=== PATIENT | male | born 1965 | race African-American/Black ===

== ENCOUNTER 2021-12-17 12:55 | Emergency (ER) | payer MEDICAID ==
[~2021-12-17] VITALS: Ht 160 cm; Wt 63.8 kg
[2021-12-17 13:49] LABS: Basophils # (auto) 0 10 ^3/uL (0-0.2); Basophils % (auto) 1.1 % (0.0-2.0); Eosinophils # (auto) 0 10 ^3/uL (0-0.8); Eosinophils % (auto) 0.8 % (0.0-7.0); Hematocrit 45.5 % (41.0-53.0); Hemoglobin 15.1 g/dL (13.5-17.5); Lymphocytes # (auto) 1.7 10 ^3/uL (0.4-5.4); Lymphocytes % (auto) 50.1 % (10.0-50.0); Mean Corpuscular Hemoglobin 27.8 pg (28.0-32.0); Mean Corpuscular Hgb Conc. 33.3 g/dL (32.0-36.0); Mean Corpuscular Volume 83.3 fL (80.0-100.0); Monocytes # (auto) 0.4 10 ^3/uL (0-1.3); Monocytes % (auto) 12.1 % (0.0-12.0); Neutrophils # (auto) 1.2 10 ^3/uL (1.6-8.6); Neutrophils % (auto) 35.9 % (37.0-80.0); Nucleated Red Blood Cells % 0.1 %; Red Blood Cells 5.45 10^6/uL (4.5-5.90); Red Cell Distribution Width 14.8 % (11.8-14.3); White Blood Cell 3.4 10^3/uL (4.4-10.8)
[2021-12-17 14:14] LABS: Albumin 3.6 g/dL (3.4-5.0); Potassium 4.2 mmol/L (3.5-5.1)
[2021-12-17 14:22] LABS: BUN/Creatinine Ratio 8.3; Bilirubin, Total 0.7 mg/dL (0.2-1.0); Total Protein 7.1 g/dL (6.4-8.2)
[2021-12-17] MEDS ORDERED: PANT40TA2 PO ×2 (15:54→17:04)
[2021-12-17 16:31] VITALS: BP 107/78
== END 2021-12-17 16:38 | disposition home or self-care (01) ==
LOC: ER 12:57
DX: K29.70 Gastritis, unspecified, without bleeding (principal); Z79.899 Other long term (current) drug therapy; Z88.0 Allergy status to penicillin
CPT/HCPCS: 36415; 74176; 80053; 83690; 84484; 85025; 93005

== ENCOUNTER 2022-03-18 09:08 | Emergency (ER) | payer MEDICAID ==
[~2022-03-18] VITALS: Ht 157.5 cm; Wt 56.9 kg
[~2022-03-18 09:08] MED LIST: PANT40TA2 PO
[2022-03-18 09:56] VITALS: BP 97/62
[2022-03-18] MEDS ORDERED: LEVO500T31 PO (10:30)
[2022-03-18] MEDS ORDERED: METH4PAK PO (10:30)
== END 2022-03-18 10:35 | disposition home or self-care (01) ==
LOC: ER 09:08
DX: J01.90 Acute sinusitis, unspecified (principal); Z88.0 Allergy status to penicillin; Z79.899 Other long term (current) drug therapy
CPT/HCPCS: 70450

== ENCOUNTER 2023-05-30 08:54 | Emergency (ER) | payer MEDICAID ==
[~2023-05-30] VITALS: Ht 157.5 cm; Wt 62.8 kg
[~2023-05-30 08:54] MED LIST changes: +LEVO500T31 PO; +METH4PAK PO
[2023-05-30 10:49] VITALS: BP 118/76; PULSE 65; RESP 16; TEMP 97.7; O2SAT 96
[2023-05-30] MEDS ORDERED: PRED20TA2 PO (11:16)
[2023-05-30] MEDS ORDERED: MELO7.5T7 PO (11:16)
== END 2023-05-30 11:19 | disposition home or self-care (01) ==
LOC: ER 08:54
DX: M54.16 Radiculopathy, lumbar region (principal)

== ENCOUNTER 2023-06-07 05:21 | Emergency (ER) | payer MEDICAID ==
[~2023-06-07] VITALS: Ht 157.5 cm; Wt 61.4 kg
[~2023-06-07 05:21] MED LIST changes: +MELO7.5T7 PO; +PRED20TA2 PO
[2023-06-07] MEDS: KETOROLAC TROMETH 60MG/2ML VIAL IM ONE (07:33)
[2023-06-07 07:39] VITALS: BP 126/68; PULSE 62; RESP 18; TEMP 97.5; O2SAT 98
[2023-06-07] MEDS ORDERED: BACL10TA PO (08:04)
[2023-06-07] MEDS ORDERED: GABA-1250 PO (08:04)
== END 2023-06-07 08:09 | disposition home or self-care (01) ==
LOC: ER 05:21
DX: M51.16 Intervertebral disc disorders with radiculopathy, lumbar region (principal); M41.56 Other secondary scoliosis, lumbar region; Z88.0 Allergy status to penicillin; Z79.899 Other long term (current) drug therapy
CPT/HCPCS: 72100; 96372; 99283; J1885